=== PATIENT | female | born 1980 | race Caucasian/White ===

== ENCOUNTER 2019-02-18 09:49 | Emergency (ER) | payer OTHER ==
[2019-02-18 11:10] VITALS: BP 115/68
--- NOTE | 2019-02-18 11:35 | UC ---
Elbow Pain - HPI Summary HPI Summary: For the past week R elbow has been painful, radiates into R shoulder. Pt doesn' t think there was an incident to cause the pain, but a few days ago she fell off of the bed, elbow started being painful before the fall. Pt thinks this exacerbated the pain. Pt has hard time carrying heavy objects with R arm. - History of Current Complaint Chief Complaint: UCUpperExtremity Stated Complaint: RT ELBOW PAIN Time Seen by Provider: 02/18/19 11:27 Hx Obtained From: Patient Hx Last Menstrual Period: 01/21/19 ?: No Onset/Duration: Days Severity Initially: Severe Severity Currently: Severe Pain Intensity: 8 Character: Dull, Aching, Throbbing Aggravating Factor(s): Movement - Allergies/Home Medications Allergies/Adverse Reactions: Allergies Allergy/AdvReac Type Severity Reaction Status Date / Time No Known Allergies Allergy Verified 02/18/19 11:10 PMH/Surg Hx/FS Hx/Imm Hx Previously Healthy: Yes - Surgical History Surgical History: Yes Surgery Procedure, Year, and Place: Tube in right ear; Tubal Ligation; Bilateral knee ligament repair; Right Kidney removed due to kidney stones- Pending Sale To [facility]; R thumb - Family History Known Family History: Negative: Hypertension - Social History Alcohol Use: None Substance Use Type: None Smoking Status (MU): Never Smoked Tobacco Have You Smoked in the Last Year: Yes Review of Systems All Other Systems Reviewed And Are Negative: Yes Musculoskeletal: Positive: Arthralgia, Decreased ROM, Myalgia Physical Exam Triage Information Reviewed: Yes Appearance: Well-Appearing, Well-Nourished, Pain Distress Vital Signs: Initial Vital Signs Temp 98.5 F 02/18/19 11:03 Pulse 83 02/18/19 11:03 Resp 18 02/18/19 11:03 BP 115/68 02/18/19 11:03 Pulse Ox 100 02/18/19 11:03 Vital Signs Reviewed: Yes Eye Exam: Normal ENT Exam: Normal Dental Exam: Normal Neck exam: Normal Respiratory Exam: Normal Cardiovascular Exam: Normal Abdominal Exam: Normal Bowel Sounds: Positive: Present Musculoskeletal: Positive: ROM Intact - but pain ful with flexion, No Edema, Strength Limited @ - hard to bend with resistance Neurological Exam: Normal Psychological Exam: Normal Skin Exam: Normal Elbow Pain Course/Dx - Course Course Of Treatment: hx obtained, exam performed ,meds reviewed, xrays are negative. symptoms are not correlating with clinical presentation. treated with anti inflammatories, a sling and request a follow up with ortho if not improving in a week - Differential Dx/Diagnosis Differential Diagnosis/HQI/PQRI: Bursitis, Contusion, Fracture (Closed), Sprain , Strain Provider Diagnosis: Right elbow pain Discharge ED - Sign-Out/Discharge Documenting (check all that apply): Patient Departure All imaging exams completed and their final reports reviewed: Yes - Discharge Plan Condition: Stable Disposition: HOME Patient Education Materials: Arthralgia (ED) Referrals: Shannon Art MD [Primary Care Provider] - Abimael Astorga MD [Medical Doctor] - Additional Instructions: 1. use the medication and sling as prescribed. 2. If not improving by next week, follow up with ortho - Billing Disposition and Condition Condition: STABLE Disposition: Home
[2019-02-18] MEDS ORDERED: Ketorolac *IM* INJ* 60 MG/2 ML VIAL IM ONE (12:06)
== END 2019-02-18 12:37 | disposition home or self-care (01) ==
LOC: UCCORT 09:49
DX: M25.521 Pain in right elbow (principal)
CPT/HCPCS: 96372; 99213; G0463; J1885

== ENCOUNTER 2019-07-19 14:03 | Emergency (ER) | payer BC, OTHER ==
--- OUTSIDE RECORDS SUMMARY | 2019-07-19 14:48 | XMS REPORT | Continuity of Care Document ---
:1980 External Reference #:[id number] Author Name Sheree Agrawal MD (transmitted by agent of provider Maya Agrawal) Address [address] [place] [id number] Care Team Providers Name Role Phone Kelsie Armando FNP - Family Care Team Information Bias Cutter Helper [phone] Problems Active Problems Provider Date Aftercare, Orthopedic Other Antoine Irving D.OHuan Onset: 04/13/2014 Chondromalacia of patella Efren Steiner M.D. Onset: 06/04/2015 Enthesopathy of knee Efren Steiner M.D. Onset: 06/25/2015 Arthralgia of the pelvic region and thigh Sheree Agrawal MD Onset: 2017 Contusion of right knee, subsequent Sheree Agrawal MD Onset: 12/14/2017 encounter Social History Type Date Description Comments Sex Unknown Tobacco Use Start: Unknown Never Smoked Cigarettes ETOH Use Never used alcohol Recreational Drug Use Denies Drug Use Tobacco Use Start: Unknown Patient denies history of smoking Smoking Status Reviewed: 07/18/19 Patient denies history of smoking Allergies, Adverse Reactions, Alerts Description No Known Drug Allergies Medications Active Medications SIG Qnty Indications Ordering Provider Date Meloxicam 1 by mouth every 30tabs Sheree Agrawal, 02/15/2019 15mg Tablets day MD Salazar HFA as directed prn Lorena Raymundo REUBEN Delvalle 108(90Base) mcg/Act Aerosol Sertraline HCL 2 tab by mouth a Dionicio, 100mg day Christina, SYSTEMS PLANNER Tablets Topiramate 1 tab by mouth Dionicio, 50mg Tablets twice a day Christina, SYSTEMS PLANNER Hydroxyzine HCL twice a day Dionicio, 25mg Christina, SYSTEMS PLANNER Tablets Aimovig once a month Anyi Gundersons 70mg/ml Solution Auto-Inject Medications Administered in Office Medication SIG Qnty Indications Ordering Provider Date Methylprednisolone acetate Shannan Montoya, 11/10/2016 (Depomedrol) 80mg injection RPAC Injection Synvisc/Synvisc-One Efren Steiner M.D. 10/01/2016 Injection Methylprednisolone acetate Shannan Montoya, 07/14/2014 (Depomedrol) 80mg injection RPAC Injection Methylprednisolone acetate Shannan Montoya, 02/08/2014 (Depomedrol) 80mg injection RPAC Injection Immunizations Description No Information Available Vital Signs Date Vital Result Comment 07/18/2019 1:53pm BP Systolic Sitting Left Arm 137 mmHg BP Diastolic Sitting Left Arm 96 mmHg Heart Rate 68 /min 07/11/2019 2:11pm BP Systolic Sitting Left Arm 108 mmHg BP Diastolic Sitting Left Arm 82 mmHg Heart Rate 92 /min Results Description No Information Available Procedures Date Code Description Status 07/11/2019 32503 Radiology, Knee 3 Views Completed Medical Devices Description No Information Available Encounters Type Date Location Provider Dx Diagnosis Office Visit 07/18/2019 Orthopaedic Office Sheree Agrawal, M22.41 Chondromalacia 2:00p patellanisreen, right knee Office Visit 07/11/2019 Orthopaedic Office Blossom Goff M22.41 Chondromalacia 2:00p PA patellae, right knee Office Visit 04/08/2019 Orthopaedic Office Blossom Goff M22.41 Chondromalacia 2:15p PA patellae, right knee Office Visit 02/15/2019 Orthopaedic Office Blossom Goff M22.41 Chondromalacia 1:45p PA patellae, right knee Assessments Date Code Description Provider 07/18/2019 M22.41 Chondromalacia patellae, right knee Sheree Agrawal MD 07/11/2019 M22.41 Chondromalacia patellae, right knee Blossom Goff PA 04/08/2019 M22.41 Chondromalacia patellae, right knee Blossom Goff PA 02/15/2019 M22.41 Chondromalacia patellae, right knee Blossom Goff PA Plan of Treatment 07/18/2019 - Sheree Agrawal [email or web address] Chondromalacia patellae, right kneeNew Therapy:Physical/Occupational Therapy Functional Status Description No Information Available Mental Status Description No Information Available Referrals Description No Information Available
--- OUTSIDE RECORDS SUMMARY | 2019-07-19 14:48 | XMS REPORT | Continuity of Care Document ---
:1980 External Reference #:[id number] Author Name Blossom Goff PA (transmitted by agent of provider Seema Aquino) Address [address] [place] [id number] Care Team Providers Name Role Phone Kelsie Armando FNP - Family Care Team Information Vineyard Supervisor [phone] Problems Active Problems Provider Date Aftercare, Orthopedic Other Antoine Irving, D.OHuan Onset: 04/13/2014 Chondromalacia of patella Efren [...] denies history of smoking Smoking Status Reviewed: 07/11/19 Patient denies history of smoking Allergies, Adverse Reactions, Alerts Description No Known Drug Allergies Medications Active Medications SIG Qnty Indications Ordering Provider Date Meloxicam 1 by mouth 30tabs Sheree Agrawal MD 02/15/2019 15mg Tablets every day Ventolin Lorena Brady, 108(90Base) PA-C mcg/Act Aerosol Sertraline HCL 2 tab by mouth Dionicio, 100mg a day Christina, KNITTER OPERATOR Tablets Topiramate 1 tab by mouth Dionicio, 50mg Tablets twice a day Christina, KNITTER OPERATOR Hydroxyzine HCL twice a day Dionicio, 25mg Christina, KNITTER OPERATOR Tablets Aimovig once a month Anyi Gundersons [...] Available Vital Signs Date Vital Result Comment 07/11/2019 2:11pm BP Systolic Sitting Left Arm 108 mmHg BP Diastolic Sitting Left Arm 82 mmHg Heart Rate 92 /min 04/08/2019 2:19pm BP Systolic Sitting Left Arm 126 mmHg BP Diastolic Sitting Left Arm 86 mmHg Body Temperature 98.5 F Heart Rate 91 /min Respiratory Rate 20 /min Height 60 inches 5'0" Weight 192.00 lb BMI (Body Mass Index) 37.5 kg/m2 BSA (Body Surface Area) 1.83 m2 [place] body weight in kilograms 45 kg O2 % BldC Oximetry 97 % Results Test Acquired Date Facility Test Result H/L Range Note Xray 07/11/2019 [facility] - Orthopedic RMP, Knee, RT, Ap, < pending> [address] [facility] ([address] [place] [address] view) [phone] Procedures Date Code Description Status 07/11/2019 18200 Radiology, Knee 3 Views Completed Medical Devices Description No Information Available Encounters Type Date Location Provider Dx Diagnosis Office Visit 04/08/2019 Orthopaedic Office Blossom Goff M22.41 Chondromalacia 2:15p PA patellae, right knee Office Visit 02/15/2019 Orthopaedic Office Blossom Goff M22.41 Chondromalacia 1:45p PA patellae, right knee Assessments Date Code Description Provider 07/11/2019 M22.41 Chondromalacia patellae, right knee Blossom Goff PA 04/08/2019 M22.41 Chondromalacia patellae, right knee Blossom Goff PA 02/15/2019 M22.41 Chondromalacia patellae, right knee Blossom Goff PA Plan of Treatment Future Appointment(s):07/18/2019 2:00 pm - Sheree Agrawal MD at [facility]6507/11/2019 - Blossom Goff, [email or web address] Chondromalacia patellae, right kneeAllFollow up:dr agrawal Functional Status Description No Information Available Mental Status Description No Information Available Referrals Description No Information Available
--- OUTSIDE RECORDS SUMMARY | 2019-07-19 14:48 | XMS REPORT | Continuity of Care Document ---
:1980 External Reference #:[id number] Author Name Sheree Agrawal MD (transmitted by agent of provider Amparo Jasmine) Address [address] [place] [id number] Care Team Providers Name Role Phone Kelsie Armando FNP - Family Care Team Information Museum Or Zoo Director [phone] Problems Active Problems Provider Date Aftercare, Orthopedic [...] Sheree Agrawal, 02/15/2019 15mg Tablets day MD Martin SUAZOA as directed prn Lorena Raymundo REUBEN Delvalle 108(90Base) mcg/Act Aerosol Sertraline HCL 2 tab by mouth a Dionicio, 100mg day Christina, NURSE AUDITOR Tablets Topiramate 1 tab by mouth Dionicio, 50mg Tablets twice a day Christina, NURSE AUDITOR Hydroxyzine HCL twice a day Dionicio, 25mg Christina, NURSE AUDITOR Tablets Aimovig once a month Anyi Gundersons [...] Available Procedures Date Code Description Status 07/11/2019 18677 Radiology, Knee 3 Views Completed Medical Devices Description No Information Available Encounters Type Date Location Provider Dx Diagnosis Office Visit 07/11/2019 Orthopaedic Office Blossom Goff [...] knee Blossom Goff PA Plan of Treatment No Information Available Functional Status Description No Information Available Mental Status Description No Information Available Referrals Description No Information Available
--- OUTSIDE RECORDS SUMMARY | 2019-07-19 14:48 | XMS REPORT | Continuity of Care Document ---
:1980 External Reference #:[id number] Author Name Blossom Goff PA (transmitted by agent of provider Maya Agrawal) Address [address] [place] [id number] Care Team Providers Name Role Phone Kelsie Armando FNP - Family Care Team Information Supervisor [employer] [phone] Problems Active Problems Provider Date Aftercare, Orthopedic [...] by mouth Dionicio, 100mg a day Christina, SERVICE INSPECTOR Tablets Topiramate 1 tab by mouth Dionicio, 50mg Tablets twice a day Christina, SERVICE INSPECTOR Hydroxyzine HCL twice a day Dionicio, 25mg Christina, SERVICE INSPECTOR Tablets Aimovig once a month Song Gunderson 70mg/ml Solution Auto-Inject Medications Administered in Office [...] kg/m2 BSA (Body Surface Area) 1.83 m2 [place] body weight in kilograms 45 kg O2 % BldC Oximetry 97 % Results Description No Information Available Procedures Date Code Description Status 07/11/2019 74866 Radiology, Knee 3 Views Completed Medical Devices [...]
[2019-07-19 14:55] VITALS: BP 121/66
--- NOTE | 2019-07-19 15:54 | UC ---
Ear Complaint HPI - HPI Summary HPI Summary: 39-year-old female presents with 4 day history of left ear and jaw pain. Reports some discomfort with chewing. States the jaw and area in front of her ear are tender to touch. Denies injury, fever, chills, URI symptoms, ear drainage, hearing loss, tinnitus, vertigo, dental pain, facial swelling, sore throat, dysphagia, or difficulty breathing. - History of Current Complaint Chief Complaint: UCEar Stated Complaint: LT EAR PAIN Time Seen by Provider: 07/19/19 15:10 Hx Last Menstrual Period: 05/10/19 Pain Intensity: 10 - Allergies/Home Medications Allergies/Adverse Reactions: Allergies Allergy/AdvReac Type Severity Reaction Status Date / Time No Known Allergies Allergy Verified 05/26/19 16:42 Home Medications: Home Medications Sertraline HCl [Zoloft] 150 mg PO QAM 09/10/18 [History Confirmed 07/19/19] Meloxicam(NF) [Mobic(NF)] 15 mg PO DAILY #14 tab 02/18/19 [Rx Confirmed 07/19/19 ] Topiramate [Topiramate ER 50 mg cap] 50 mg PO BID 05/26/19 [History Confirmed ] busPIRone TAB* [Buspar TAB*] 10 mg PO BID 05/26/19 [History Confirmed 07/19/19] hydrOXYzine HCL TAB* [Atarax 25 MG TAB*] 25 mg PO BID PRN 05/26/19 [History Confirmed 07/19/19] Erenumab-Aooe [Aimovig Autoinjector (2 Pack)] 70 mg SQ MONTHLY 07/19/19 [ History Confirmed 07/19/19] Naproxen [Naproxen 500 mg tab] 500 mg PO Q12HR #30 tablet 07/19/19 [Rx] PMH/Surg Hx/FS Hx/Imm Hx Neurological History: Migraine Psychological History: Depression - Surgical History Surgical History: Yes Surgery Procedure, Year, and Place: Tube in right ear. Tubal Ligation. Bilateral knee ligament repair. Right Kidney removed due to kidney stones- [facility]. R thumb - Family History Known Family History: Negative: Hypertension - Social History Occupation: Unemployed Lives: With Family Alcohol Use: None Substance Use Type: None Smoking Status (MU): Never Smoked Tobacco Have You Smoked in the Last Year: Yes Review of Systems All Other Systems Reviewed And Are Negative: Yes Constitutional: Negative: Fever, Chills Skin: Negative: Rash, Bruising Eyes: Negative: Drainage, Eye Redness ENT: Positive: Ear Ache, Other - See HPI. Negative: Sore Throat, Nasal Discharge, Sinus Congestion, Sinus Pain/Tenderness Respiratory: Positive: Negative Cardiovascular: Positive: Negative Gastrointestinal: Positive: Negative Genitourinary: Positive: Negative Musculoskeletal: Positive: Negative Neurological/Mental Status: Positive: Negative Is Patient Immunocompromised?: No Physical Exam - Summary Physical Exam Summary: GENERAL APPEARANCE: Well developed, well nourished, alert and cooperative, and appears to be in no acute distress. HEAD: Atraumatic. Normocephalic. Tenderness over the left TMJ, no clicks or catches, no trismus. EYES: Conjunctiva clear. No drainage. EARS: External auditory canals and tympanic membranes clear, hearing grossly intact. NOSE: No nasal discharge. THROAT: Pharynx normal. No tonsilar inflammation, swelling, exudate, or lesions. Uvula midline. Oral cavity normal. NECK: Neck supple, non-tender without lymphadenopathy. CARDIAC: Normal S1 and S2. No S3, S4 or murmurs. Rhythm is regular. There is no peripheral edema, cyanosis or pallor. Extremities are warm and well perfused. Capillary refill is less than 2 seconds. Peripheral pulses intact. LUNGS: Clear to auscultation without rales, rhonchi, wheezing or diminished breath sounds. ABDOMEN: Positive bowel sounds. Soft, nondistended, nontender. No guarding or rebound. No masses or hepatosplenomegally. MUSKULOSKELETAL: ROM intact to all extremities. No joint erythema or tenderness. Normal muscular development. Normal gait. SKIN: Skin normal color, texture and turgor with no lesions or eruptions. Triage Information Reviewed: Yes Vital Signs: Initial Vital Signs Temp 98.1 F 07/19/19 14:51 Pulse 92 07/19/19 14:51 Resp 07/19/19 14:51 BP 121/66 07/19/19 14:51 Pulse Ox 98 07/19/19 14:51 Vital Signs Reviewed: Yes Ear Complaint Course/Dx - Course Course Of Treatment: 39-year-old female presents with 4 day history of left ear and jaw pain. Reports some discomfort with chewing. States the jaw and area in front of her ear are tender to touch. Denies injury, fever, chills, URI symptoms, ear drainage, hearing loss, tinnitus, vertigo, dental pain, facial swelling, sore throat, dysphagia, or difficulty breathing. Afebrile. Vital signs stable. Patient had tenderness over the left TMJ without clicks or catches, no trismus, normal TMs, normal pharynx, and otherwise unremarkable exam. 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 - Differential Dx/Diagnosis Differential Diagnosis/HQI/PQRI: Cellulitis, Cerumen Impaction, Otitis Externa, Otitis Media, TMJ Syndrome, URI Provider Diagnosis: TMJ syndrome Discharge ED - Sign-Out/Discharge Documenting (check all that apply): Patient Departure All imaging exams completed and their final reports reviewed: No Studies - Discharge Plan Condition: Stable Disposition: HOME Prescriptions: Naproxen [Naproxen 500 mg tab] 500 mg PO Q12HR #30 tablet Patient Education Materials: Temporomandibular Disorder (ED) Referrals: No Primary Care Phys,NOPCP [Primary Care Provider] - [facility] REFERRAL [Outside] Additional Instructions: Take naproxen 500 mg 1 tablet every 12 hours with food for the next 5-7 days then may take every 12 hours as needed for pain. Stick to a soft diet while you are having pain. Apply ice to the jaw for 15-20 minutes at least 4 times a day to help with pain and swelling. Return here or follow-up with primary care in 7 days if symptoms are not improving. Seek immediate medical attention in the emergency room if you develop fever greater than 100.5 F, you have severe pain that is not managed with pain medication, you're unable to open or close her mouth, you're unable to swallow, difficulty breathing, or any worsening of symptoms. - Billing Disposition and Condition Condition: STABLE Disposition: Home
== END 2019-07-19 16:02 | disposition home or self-care (01) ==
LOC: UCCORT 14:03
DX: M26.602 Left temporomandibular joint disorder, unspecified (principal); F32.9 Major depressive disorder, single episode, unspecified; G43.909 Migraine, unspecified, not intractable, without status migrainosus; Z79.899 Other long term (current) drug therapy
CPT/HCPCS: 99212; G0463